=== PATIENT | female | born 1975 | race Hispanic/Latino ===

== ENCOUNTER 2017-05-27 17:08 | Emergency (ER) | END 2017-05-27 17:39 | disposition short-term general hospital (02) | LOC: ER 17:08 | DX: K64.9 Unspecified hemorrhoids (principal) ==

== ENCOUNTER 2023-12-13 20:50 | Emergency (ER) | payer BC ==
[~2023-12-13] VITALS: Ht 162.6 cm; Wt 80.7 kg
[2023-12-13 20:53] VITALS: TEMP 98.6
[2023-12-13] MEDS: ASPIRIN 81 MG CHEW TAB PO ONE (22:05)
[2023-12-13 23:00] VITALS: PULSE 56; RESP 18
[2023-12-13] MEDS ORDERED: CYCLOBENZAPRINE5 MG PO (23:46)
[2023-12-14] MEDS: CYCLOBENZAPRINE HCL 10 MG TAB PO ONE (00:11)
[2023-12-14 00:28] VITALS: BP 121/59; PULSE 68; RESP 18; TEMP 98.3; O2SAT 98
== END 2023-12-14 00:08 | disposition home or self-care (01) ==
LOC: FSED 20:54
DX: R07.89 Other chest pain (principal); I10 Essential (primary) hypertension; K21.9 Gastro-esophageal reflux disease without esophagitis; Z98.84 Bariatric surgery status
CPT/HCPCS: 71046; 80053; 80307; 81003; 81025; 84484; 85025; 93005; 99284